=== PATIENT | female | born 1935 | race Caucasian/White ===

== ENCOUNTER 2020-01-27 10:24 | Emergency (ER) | payer BC, SELFPAY ==
--- NOTE | ~2020-01-27 | XR_ITS ---
XR thoracolumbar DATE: 01/27/2020 11:30 INDICATION: Mid back pain. No injury. TECHNIQUE: AP and lateral views of the thoracolumbar spine, not completely including the thoracic or the lumbar spine. COMPARISON: None FINDINGS: There is moderate osteopenia. There is mild extra scoliosis of the thoracic spine and mild levoscoliosis of the lumbar spine. There is degenerative spurring of the thoracic spine. There is degenerative disc disease of the lumba r spine. No fracture or bone destruction is evident. The pedicles are intact. The abdominal aorta is calcified; no apparent aneurysm of the calcified mid and lower portions. Surgical clips, right upper quadrant, likely due to cholecystectomy IMPRESSION: Degenerative changes of the thoracic and lumbar spine Scoliosis Status post cholecystectomy. Reviewed, dictated and finalized at location A.
[2020-01-27 10:29] VITALS: BP 179/75; PULSE 69; RESP 17; TEMP 36.8; O2SAT 100
[2020-01-27] MEDS: SODIUM CHLORIDE 0.9% IV 1,000 ML 999 ML IV CONT (11:45)
--- NOTE | 2020-01-27 13:14 | ED.BACK ---
HPI - Back Pain/Injury General Chief Complaint: Back Pain/Injury Stated Complaint: back pain Time Seen by Provider: 01/27/20 11:03 History of Present Illness HPI Narrative: Patient is an 84-year-old female who presents ER after injuring her back 3 days ago. She was playing with her dog when she felt a twinge in her back beneath her shoulder blades. It sharp and has increased in pain over the last few days she has waves of pain that occur when she moves. No direct trauma to the back. No numbness or burning related to this. No urinary/fecal incontinence. Has been placing a hot water pad to her back and has used some spray on IcyHot. Related Data Allergies Allergy/AdvReac Type Severity Reaction Status Date / Time No Known Allergies Allergy Verified 01/27/20 10:33 Review of Systems Constitutional: Constitutional: Denies chills, Denies fever(s) and Denies weakness Cardiovascular: Cardiovascular: Denies chest pain and Denies radiating jaw, neck or arm pain Respiratory: Respiratory: Denies cough, Denies dyspnea and Denies wheezing Musculoskeletal: Musculoskeletal: Reports back pain and Reports muscle cramps Neurologic: Denies focal weakness and Denies numbness PMFSH Past Medical History Medical History (Updated 01/27/20 @ 13:23 by Duran Henriquez MD) Chronic kidney disease Scoliosis Surgical History Surgical History (Updated 01/27/20 @ 13:21 by Duran Henriquez MD) H/O: hysterectomy History of appendectomy History of cholecystectomy Social History Social History (Updated 01/27/20 @ 13:16 by Duran Henriquez MD) Smoking status: Never smoker Gender identity (if verbalized by the patient): Female Exam Narrative: Exam Narrative: GENERAL: Uncomfortable-appearing, well-nourished, and in mild distress. HEAD: Normocephalic, atraumatic. CHEST: Clear to auscultation. No respiratory distress. HEART: Regular rate and rhythm. Normal peripheral pulses. Back: No midline tenderness of the thoracic lumbar spine but very tender in the paraspinal musculature just inferior to the shoulder blades bilaterally without any abrasions or contusions. EXTREMITIES: Normal range of motion. No edema. SKIN: Warm, dry, no rash. NEURO: Alert and oriented x3. Course Course Emergency Course: Patient had mild to moderate relief with the Valium and IV Tylenol but pain is started to come back. We will give a small dose of fentanyl prior to discharge which patient would like to go home. Will give patient Valium and Flexeril for home. She has been instructed to take Valium in the morning in the evening and take Flexeril in the middle of the day so she does not become sedated. Vital Signs Vital signs: Vital Signs Temperature 98.3 F 01/27/20 10:29 Pulse Rate 69 01/27/20 10:29 Respiratory Rate 17 01/27/20 10:29 Blood Pressure 179/75 H 01/27/20 10:29 Pulse Oximetry 100 01/27/20 10:29 Temperature 98.3 F 01/27/20 10:29 Pulse Rate 69 01/27/20 10:29 Respiratory Rate 17 01/27/20 10:29 Blood Pressure 179/75 H 01/27/20 10:29 Pulse Oximetry 100 01/27/20 10:29 MDM - Back Pain/Injury Imaging Data Radiologist's impression: ITS Impressions Thoracolumbar Spine 01/27/20 11:34 IMPRESSION: Degenerative changes of the thoracic and lumbar spine Scoliosis Status post cholecystectomy. Discharge Plan Discharge Clinical Impression: Muscle spasm Patient Disposition: Home, Self-Care Condition: Stable Instructions: Muscle Spasm (ED) Additional Instructions: Return the ER if you have chest pain shortness of breath, cannot keep down food or water, you have fever over 100.4 ?F, you have additional concerns. Prescriptions: New cyclobenzaprine 10 mg tablet 10 mg PO TID PRN (Reason: muscle spasm) Qty: 10 RF: 0 diazepam [Valium] 2 mg tablet 2 mg PO BID Qty: 6 RF: 0 acetaminophen 500 mg capsule 500 mg PO QID PRN (Reason: pain) Qty: 20 RF: 0 Follow-up/Referr
== END 2020-01-27 14:18 | disposition home or self-care (01) ==
PROVIDERS: Emergency Provider Emergency Medicine; PCP Internal Medicine
DX: R25.2 Cramp and spasm (principal); N18.9 Chronic kidney disease, unspecified
CPT/HCPCS: 72080; 96365; 96375; 99284; A9270; J0131; J3360; J7030

== ENCOUNTER 2020-04-14 11:35 | Emergency (ER) | payer MEDICARE, SELFPAY ==
[2020-04-14 11:45] VITALS: BP 148/66; PULSE 65; RESP 18; TEMP 36.1; O2SAT 99
[2020-04-14] MEDS: HYDROcodone/acetaminophen (*CRX) 5-325 MG TABLET 1 TAB PO (12:51)
[2020-04-14 13:19] LABS: Basophils Percent Auto 0.6 % (0.2-1.2); Eosinophils Absolute Auto 0.1 K/mm3 (0-0.3); Eosinophils Percent Auto 0.8 % (0-4.4); Hematocrit 31.1 % (37.0-47.0); Hemoglobin 10.2 g/dL (12.0-15.0); Immature Granulocyte Absolute 0.03 K/mm3 (0.00-0.031); Immature Granulocyte Percent A 0.5 % (0-0.5); Lymphocytes Absolute Auto 1.38 K/mm3 (0.9-3.2); Lymphocytes Percent Auto 21.7 % (18.3-44.2); Mean Corpuscular HGB Conc 32.8 g/dl (32-36); Mean Corpuscular Hemoglobin 29.1 pg (26-34); Mean Corpuscular Volume 88.6 fl (80-100); Mean Platelet Volume 9.7 fl (7.4-10.4); Monocytes Absolute Auto 0.5 K/mm3 (0.1-0.6); Monocytes Percent Auto 7.5 % (2.6-8.5); Neutrophils Absolute Auto 4.4 K/mm3 (1.3-6.7); Neutrophils Percent Auto 68.9 % (45.5-73.1); Platelet Count Result 252 k/mm3 (150-375); Red Blood Count 3.51 M/mm3 (4.2-5.4); Red Cell Distribution Width 15.8 % (11.5-14.5); White Blood Count 6.4 K/mm3 (4.5-10.0)
--- NOTE | 2020-04-14 13:24 | ED.GENADULT ---
HPI - General Adult General Chief complaint: Back Pain/Injury Stated complaint: back pain Time Seen by Provider: 04/14/20 12:03 Source: patient and old records reviewed Mode of arrival: ambulatory Limitations: no limitations History of Present Illness HPI narrative: Patient is a 84-year-old female who presents to emergency department for evaluation of mid back spasms that began last night patient notes history of similar occurrence for which she takes Tylenol and muscle relaxer for has had imaging in the past denies any recent illness injury or trauma and is otherwise resting comfortably in the room in no distress. Related Data Home Medications Medication Instructions Recorded Confirmed losartan 04/14/20 04/14/20 rosuvastatin mg 04/14/20 Allergies Allergy/AdvReac Type Severity Reaction Status Date / Time No Known Allergies Allergy Verified 04/14/20 12:03 Review of Systems Review of Systems: All systems reviewed & are unremarkable except as noted in HPI and below PMFSH Past Medical History Medical History Chronic kidney disease Scoliosis Surgical History Surgical History H/O: hysterectomy History of appendectomy History of cholecystectomy Social History Social History Smoking status: Never smoker Gender identity (if verbalized by the patient): Female Exam Narrative: Exam Narrative: GENERAL: Well-appearing, well-nourished, and in no acute distress. HEAD: Normocephalic, atraumatic. EYES: PERRLA and EOMI. ENT: Nares clear, no rhinorrhea or epistaxis. Mucous membranes moist. CHEST: Clear to auscultation. No respiratory distress. No wheezes rales or rhonchi HEART: Regular rate and rhythm. No murmur heard. EXTREMITIES: Normal range of motion. No edema. No deformity or tenderness of the thoracic or lumbar spine SKIN: Warm, dry, no rash. NEURO: No focal deficits. Alert and oriented x3. Cranial nerves II through XII grossly intact. Normal speech and gait PSYCH: Normal mood and affect. Course Course Emergency Course: Patient in the room in no distress aware of case findings treatment plan diagnosis agreeing to follow-up as direct Vital Signs Vital signs: Vital Signs Temperature 97.0 F L 04/14/20 11:45 Pulse Rate 65 04/14/20 11:45 Respiratory Rate 18 04/14/20 11:45 Blood Pressure 148/66 H 04/14/20 11:45 Pulse Oximetry 99 04/14/20 11:45 Temperature 97.0 F L 04/14/20 11:45 Pulse Rate 65 04/14/20 11:45 Respiratory Rate 18 04/14/20 11:45 Blood Pressure 148/66 H 04/14/20 11:45 Pulse Oximetry 99 04/14/20 11:45 Medical Decision Making MDM Narrative Medical decision making narrative: Patients pain is positional in nature and localized to back without signs of cord compression or cauda equina based on neurological exam, skeletal exam and history. No fever or other significant factors to suggest osteomyelitis or spinal epidural abscess. No symptoms or signs to suggest pain is referred from abdominal or / cardiopulmonary sources. No pulsatile masses noted on exam. Patient ambulates with steady gait and is stable for outpatient management given case findings. Vital Signs Vital Signs: Vital Signs Temperature 97.0 F L 04/14/20 11:45 Pulse Rate 65 04/14/20 11:45 Respiratory Rate 18 04/14/20 11:45 Blood Pressure 148/66 H 04/14/20 11:45 Pulse Oximetry 99 04/14/20 11:45 Temperature 97.0 F L 04/14/20 11:45 Pulse Rate 65 04/14/20 11:45 Respiratory Rate 18 04/14/20 11:45 Blood Pressure 148/66 H 04/14/20 11:45 Pulse Oximetry 99 04/14/20 11:45 Lab Data Result diagrams: 04/14/20 13:09 04/14/20 13:09 Labs: Lab Results 04/14/20 04/14/20 04/14/20 Range/Units 13:09 13:09 13:09 WBC 6.4 (4.5-10.0) K/mm3 RBC 3.51 L (4.2-5.4)
[2020-04-14 13:25] LABS: Add Urine Microscopic? YES; Appearance Urine Clear (Clear); Bacteria Urine Trace /hpf; Bilirubin Urine Negative (Negative); Blood Urine Negative (Negative); Color Urine Straw (Yellow); Glucose Urine UA Negative (Negative); Ketones Urine Negative (Negative); Leukocyte Esterase Ur Trace LEU/UL (Negative); Nitrate Urine Negative (Negative); Protein Urine Negative (Negative); RBC Urine 0-2 /hpf (0-2); Specific Grav Ur 1.006 (1.001-1.035); Squamous Epithelial Cell Urine Occasional /hpf (Few); Urobilinogen Urine Negative mg/dL (<2.0); WBC Urine 0-3 /hpf
[2020-04-14 13:31] LABS: Anion Gap 7 mmol/L (8-16); Blood Urea Nitrogen 17 mg/dL (7-17); Calcium 9.4 mg/dL (8.4-10.2); Carbon Dioxide 27 mmol/L (22-30); Chloride 103 mmol/L (98-107); Estimated CRCL calculation 29 ml/min; Estimated Glomerular Filt Rate 39; Glucose 93 mg/dL (65-105); Potassium 4.1 mmol/L (3.4-5.0); Sodium 137 mmol/L (137-145)
== END 2020-04-14 14:15 | disposition home or self-care (01) ==
PROVIDERS: Emergency Medicine Emergency Medical Services; Emergency Provider Emergency Medicine; PCP Internal Medicine
DX: M54.16 Radiculopathy, lumbar region (principal); N18.9 Chronic kidney disease, unspecified
CPT/HCPCS: 36415; 80048; 81001; 85025; 99283; A9270

== ENCOUNTER 2020-05-05 15:16 | Outpatient (CLI) | payer MEDICARE, SELFPAY ==
[2020-05-05 15:47] LABS: Basophils Absolute Auto 0.1 K/mm3 (0.0-0.1); Basophils Percent Auto 0.7 % (0.2-1.2); Eosinophils Absolute Auto 0.1 K/mm3 (0-0.3); Eosinophils Percent Auto 1.8 % (0-4.4); Hematocrit 34.2 % (37.0-47.0); Hemoglobin 10.8 g/dL (12.0-15.0); Immature Granulocyte Absolute 0.03 K/mm3 (0.00-0.031); Immature Granulocyte Percent A 0.4 % (0-0.5); Immature Reticulocyte Fraction 15.1 % (3.0-15.9); Lymphocytes Absolute Auto 1.99 K/mm3 (0.9-3.2); Lymphocytes Percent Auto 27.8 % (18.3-44.2); Mean Corpuscular HGB Conc 31.6 g/dl (32-36); Mean Corpuscular Hemoglobin 28.4 pg (26-34); Mean Platelet Volume 9.9 fl (7.4-10.4); Monocytes Absolute Auto 0.5 K/mm3 (0.1-0.6); Monocytes Percent Auto 6.7 % (2.6-8.5); Neutrophils Absolute Auto 4.5 K/mm3 (1.3-6.7); Neutrophils Percent Auto 62.6 % (45.5-73.1); Platelet Count Result 283 k/mm3 (150-375); Red Cell Distribution Width 15.3 % (11.5-14.5); Reticulocyte Percent 1.68 % (0.7-4.3); Reticulocytes Absolute 0.06 B/L (32.2-175.7); White Blood Count 7.2 K/mm3 (4.5-10.0)
[2020-05-05 16:37] LABS: Iron 35 ug/dL (37-170)
[2020-05-05 16:40] LABS: Hemoglobin A1C 5.4 % (<5.7)
[2020-05-05 16:41] LABS: Alanine Aminotransferase 12 U/L (4-35); Albumin Level 4.1 g/dL (3.5-5.1); Alkaline Phosphatase 69 U/L (38-126); Anion Gap 6 mmol/L (8-16); Aspartate Amino Transferase 23 U/L (14-36); Bilirubin,Total 0.6 mg/dL (0.2-1.3); Blood Urea Nitrogen 18 mg/dL (7-17); Calcium 9.8 mg/dL (8.4-10.2); Carbon Dioxide 29 mmol/L (22-30); Chloride 102 mmol/L (98-107); Cholesterol 168 mg/dL (0-200); Estimated Glomerular Filt Rate 39; Glucose 101 mg/dL (65-105); HDL Direct 98 mg/dL; Lactate Dehydrogenase 321 U/L (313-618); Phosphorus 4.4 mg/dL (2.5-4.5); Potassium 4.1 mmol/L (3.4-5.0); Sodium 137 mmol/L (137-145); Triglycerides 78 mg/dL (<150); Uric Acid 4.9 mg/dL (2.5-7.5)
[2020-05-05 16:42] LABS: Add Urine Microscopic? YES; Appearance Urine Clear (Clear); Bacteria Urine Trace /hpf; Bilirubin Urine Negative (Negative); Blood Urine Negative (Negative); Color Urine Yellow (Yellow); Glucose Urine UA Negative (Negative); Ketones Urine Negative (Negative); Leukocyte Esterase Ur 2+ LEU/UL (Negative); Mucus Urine Rare /lpf; Nitrate Urine Negative (Negative); Protein Urine Negative (Negative); Specific Grav Ur 1.011 (1.001-1.035); Squamous Epithelial Cell Urine Many /hpf (Few); Urobilinogen Urine Negative mg/dL (<2.0); WBC Urine 21-30 /hpf
[2020-05-05 16:47] LABS: Percent Iron Saturation 9 % (20-50)
[2020-05-05 16:52] LABS: LDL Cholesterol Direct 57 mg/dL
[2020-05-05 17:09] LABS: Vitamin D 25 Hydroxy 59.1 ng/mL
[2020-05-05 17:15] LABS: Ferritin 8.33 ng/mL (11.1-264)
[2020-05-05 17:40] LABS: Erythrocyte Sedimentation Rate 28 mm/hr (0-20)
[2020-05-05 17:47] LABS: Folic Acid 17.8 ng/mL (2.76->20)
[2020-05-05 18:34] LABS: Creatinine Urine 76.4 mg/dL
[2020-05-05 19:09] LABS: MALB Creatinine Ratio < 7.9 mg/g (0-30); Microalbumin Urine Random < 6.0 mg/L (0-16.7)
== END 2020-05-05 15:17 | disposition home or self-care (01) ==
LOC: ANHLAB 15:18
PROVIDERS: PCP Internal Medicine; Visit Provider Internal Medicine Hematology & Oncology
DX: E78.5 Hyperlipidemia, unspecified (principal); N18.30 Chronic kidney disease, stage 3 unspecified; I50.9 Heart failure, unspecified; E11.65 Type 2 diabetes mellitus with hyperglycemia; E55.9 Vitamin D deficiency, unspecified; N39.0 Urinary tract infection, site not specified; Z11.4 Encounter for screening for human immunodeficiency virus [HIV]
CPT/HCPCS: 36415; 80053; 80061; 81001; 82043; 82306; 82607; 82728; 82746; 83036; 83540; 83550; 83615; 83970; 84100; 84443; 84550; 85025; 85046; 85652; 87077; 87086; 87088; 87186

== ENCOUNTER → 2021-04-28 10:39 | Outpatient (CLI) | payer MEDICARE, SELFPAY ==
--- NOTE | ~2021-04-28 | XR_ITS ---
XR thoracic spine 2V DATE: 04/28/2021 11:03 INDICATION: Thoracic spine pain TECHNIQUE: AP, lateral, swimmer views COMPARISON: None FINDINGS: There is diffuse osteopenia. There is kyphodextroscoliosis of the thoracic spine. There is degenerative spurring of the thoracic spine. No fracture or bone destruction is detected. The thoracic pedicles appear intact. No paraspinal soft tissue thickening. IMPRESSION: Diffuse osteopenia Kyphodextroscoliosis Degenerative spurring Reviewed, dictated and finalized at location B.
== END ==
PROVIDERS: PCP Internal Medicine; Visit Provider Nurse Practitioner Family
DX: M54.6 Pain in thoracic spine (principal); M85.88 Other specified disorders of bone density and structure, other site
CPT/HCPCS: 72070

== ENCOUNTER 2021-08-03 23:28 | Emergency (ER) | payer MEDICARE, SELFPAY ==
[2021-08-03 23:34] VITALS: BP 156/105; PULSE 80; RESP 18; TEMP 36.7; O2SAT 95
--- NOTE | 2021-08-04 01:15 | PC.NURSE ---
Pt's family up to the desk, states that she's taking Jesusita home now, that she's simply too tired to wait for a pneumonia screen at this time. States will follow up with her PMD or return if worse. Pt and family ambulatory out of department.
== END 2021-08-04 00:49 | disposition left against medical advice (07) ==
LOC: ANHED 08-04 01:21
PROVIDERS: PCP Internal Medicine
DX: R05.9 Cough, unspecified (principal)
CPT/HCPCS: 99199

== ENCOUNTER 2022-02-08 06:36 | Outpatient (CLI) | payer MEDICARE, SELFPAY ==
--- NOTE | ~2022-02-08 | MR_ITS ---
EXAMINATION: MR thoracic spine wo con DATE: 02/08/2022 07:48 INDICATION: EXAMINATION: MR thoracic spine wo con DATE: 02/08/2022 07:48 INDICATION: Thoracic spine pain TECHNIQUE: Magnetic resonance imaging (MRI) of the thoracic spine was performed without intravenous c ontrast. Sagittal localizer T1-weighted FSE of the cervical spine was obtained. Thoracic spine sequen vernell included sagittal T2-weighted FSE, sagittal T1-weighted FSE, sagittal T2-weighted FS FSE, and axi al T2-weighted FSE. COMPARISON: 04/28/2021 FINDINGS: Mild scoliosis. Exaggerated kyphosis Vertebral body heights are aligned. Multilevel mild de generative disc space narrowing. Diffuse mild hypointense T1 marrow signal possibly due to reconversi on. No suspicious focal marrow signal. Modic type II change at T6-7 and early change at T11-12. Verte bral body heights are intact. Normal facets. No significant central canal or neural foraminal narrowi ng. The cord is normal in signal and caliber. Conus terminates at L1. IMPRESSION: 1. Multilevel mild degenerative disc disease. 2. No severe central canal or neural foraminal narrowing. Reviewed, dictated and finalized at location K.
== END 2022-02-08 06:37 | disposition home or self-care (01) ==
PROVIDERS: PCP Internal Medicine; Visit Provider Nurse Practitioner Family
DX: M51.34 Other intervertebral disc degeneration, thoracic region (principal)
CPT/HCPCS: 72146

== ENCOUNTER 2022-02-20 10:17 | Outpatient (CLI) | payer MEDICARE, SELFPAY ==
--- NOTE | ~2022-02-20 | MR_ITS ---
EXAMINATION: MR lumbar spine wo con DATE: 02/20/2022 11:20 INDICATION: Lumbar radiculopathy. TECHNIQUE: Magnetic resonance imaging (MRI) of the lumbar spine was performed without intravenous con trast. Sequences included sagittal T2-weighted FSE, sagittal T2-weighted FS FSE, sagittal T1-weighted FSE, and axial T2-weighted FSE. COMPARISON: None. FINDINGS: There is 20 degrees levoscoliosis of lumbar spine. There is 3 mm anterolisthesis of L4 on L 5. Vertebral body heights are normal. There is mildly decreased disc height at L2-L3, moderately decr eased disc height at L4-L5, and severely decreased disc height at L5-S1 with endplate remodeling. 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 The distal spinal cord signal intensity is normal. The conus medullaris is at T12-L1. The following disc levels are specifically discussed: L1-L2: The disc does not extend beyond the endplate margin. There is moderate bilateral facet joint o steoarthritis. There is mild right neural foraminal stenosis. There is no central canal stenosis. L2-L3: The disc is bulging and has an annular fissure. There is moderate right and severe left facet joint osteoarthritis. There is moderate right and mild left neural foraminal stenosis. There is mild central canal stenosis. L3-L4: The disc is bulging. There is moderate right and severe left facet joint osteoarthritis. There is mild bilateral neural foraminal stenosis. There is mild central canal stenosis. L4-L5: The disc is bulging. There is severe bilateral facet joint osteoarthritis. There is mild bilat eral neural foraminal stenosis. There is mild central canal stenosis. L5-S1: The disc is bulging and has an annular fissure. There is severe bilateral facet joint osteoart hritis. There is mild bilateral neural foraminal stenosis. There is mild central canal stenosis. IMPRESSION: 1. Severe lumbar spondylosis. 2. Lumbar levoscoliosis. Reviewed, dictated and finalized at location A.
== END 2022-02-20 10:18 | disposition home or self-care (01) ==
PROVIDERS: PCP Internal Medicine; Visit Provider Nurse Practitioner Family
DX: M47.26 Other spondylosis with radiculopathy, lumbar region (principal)
CPT/HCPCS: 72148

== ENCOUNTER 2022-06-27 10:27 | Outpatient (CLI) | payer MEDICARE, SELFPAY ==
[2022-06-27 11:15] LABS: Basophils Percent Auto 0.7 % (0.2-1.2); Eosinophils Absolute Auto 0.2 K/mm3 (0-0.3); Eosinophils Percent Auto 2.6 % (0-4.4); Hemoglobin 12.2 g/dL (12.0-15.0); Immature Granulocyte Absolute 0.03 K/mm3 (0.00-0.031); Immature Granulocyte Percent A 0.5 % (0-0.5); Lymphocytes Absolute Auto 1.32 K/mm3 (0.9-3.2); Mean Corpuscular HGB Conc 32.1 g/dl (32-36); Mean Corpuscular Hemoglobin 31.6 pg (26-34); Mean Corpuscular Volume 98.4 fl (80-100); Monocytes Absolute Auto 0.4 K/mm3 (0.1-0.6); Monocytes Percent Auto 7.5 % (2.6-8.5); Neutrophils Absolute Auto 3.8 K/mm3 (1.3-6.7); Neutrophils Percent Auto 65.7 % (45.5-73.1); Platelet Count Result 265 k/mm3 (150-375); Red Blood Count 3.86 M/mm3 (4.2-5.4); Red Cell Distribution Width 13.3 % (11.5-14.5); White Blood Count 5.8 K/mm3 (4.5-10.0)
[2022-06-27 11:26] LABS: INR 1.1; Prothrombin Time 13.7 Seconds (11.1-14.7)
[2022-06-27 11:27] LABS: Partial Thromboplastin Time 26.7 SECONDS (22.3-36.8)
[2022-06-27 11:29] LABS: Anion Gap 3 mmol/L (8-16); Blood Urea Nitrogen 22 mg/dL (7-17); Calcium 8.9 mg/dL (8.4-10.2); Carbon Dioxide 33 mmol/L (22-30); Chloride 99 mmol/L (98-107); Estimated Glomerular Filt Rate 33; Glucose 98 mg/dL (65-110); Potassium 4.6 mmol/L (3.4-5.0); Sodium 135 mmol/L (137-145)
--- NOTE | 2022-06-27 11:30 | ECG_ITS ---
Measurements Intervals [place] Rate: 49 P: MI: 0 QRS: 5 QRSD: 88 T: 20 QT: 425 QTc: 386 Interpretive Statements ATRIAL FIBRILLATION WITH SLOW VENTRICULAR RESPONSE MINIMAL ST DEPRESSION [0.025+ mV ST DEPRESSION] ABNORMAL RHYTHM ECG NO PREVIOUS ECG AVAILABLE FOR COMPARISON Electronically Signed On 06-27-2022 15:13:41 [employer] by Aris Delgadillo M.D.
[2022-06-27 15:30] LABS: Appearance Urine Clear (Clear); Bilirubin Urine Negative (Negative); Blood Urine Negative (Negative); Color Urine Yellow (Yellow); Glucose Urine UA Negative (Negative); Ketones Urine Negative (Negative); Leukocyte Esterase Ur Trace LEU/UL (Negative); Nitrate Urine Negative (Negative); Protein Urine Negative (Negative); Specific Grav Ur 1.015 (1.001-1.035); Urobilinogen Urine 0.2 mg/dL (<2.0); pH Urine 6.5 (5.0-9.0)
[2022-06-27 15:34] LABS: Bacteria Urine Trace /hpf; RBC Urine 0-2 /hpf (0-2); Squamous Epithelial Cell Urine Occasional /hpf (Few); WBC Urine 0-3 /hpf
[2022-06-27 15:43] LABS: Add Urine Microscopic? YES
== END 2022-06-27 10:28 | disposition home or self-care (01) ==
PROVIDERS: PCP Internal Medicine
DX: Z01.818 Encounter for other preprocedural examination (principal)
CPT/HCPCS: 36415; 80048; 81001; 85025; 85610; 85730; 93005

== ENCOUNTER 2022-07-13 14:04 | Emergency (ER) | payer MEDICARE, SELFPAY ==
--- NOTE | ~2022-07-13 | XR_ITS ---
EXAM: XR abdomen/kub 1V DATE: 07/13/2022 15:59 HISTORY: constipation . COMPARISON: None available. FINDINGS: Bilateral scar/atelectasis. Cholecystectomy clips. Stimulator pack with leads projecting o ut of the [id number].. Normal bowel gas pattern. No organomegaly. Likely diverticular calcificatio n projecting over the left abdomen. Degenerative changes in the lumbar spine bilateral hips and pubic symphysis. IMPRESSION: No radiographic evidence of obstruction or ileus. Reviewed, dictated and finalized at location K. [employer]CHITECT
[2022-07-13 14:59] VITALS: BP 135/61; PULSE 76; RESP 20; TEMP 36.2; O2SAT 96
[2022-07-13 15:30] LABS: Basophils Percent Auto 0.2 % (0.2-1.2); Eosinophils Percent Auto 0.4 % (0-4.4); Hematocrit 36.6 % (37.0-47.0); Immature Granulocyte Absolute 0.06 K/mm3 (0.00-0.031); Immature Granulocyte Percent A 0.7 % (0-0.5); Lymphocytes Absolute Auto 0.86 K/mm3 (0.9-3.2); Lymphocytes Percent Auto 10.7 % (18.3-44.2); Mean Corpuscular HGB Conc 32.8 g/dl (32-36); Mean Corpuscular Hemoglobin 31.3 pg (26-34); Mean Corpuscular Volume 95.6 fl (80-100); Mean Platelet Volume 9.5 fl (7.4-10.4); Monocytes Absolute Auto 0.4 K/mm3 (0.1-0.6); Monocytes Percent Auto 4.7 % (2.6-8.5); Neutrophils Absolute Auto 6.7 K/mm3 (1.3-6.7); Neutrophils Percent Auto 83.3 % (45.5-73.1); Platelet Count Result 338 k/mm3 (150-375); Red Blood Count 3.83 M/mm3 (4.2-5.4); Red Cell Distribution Width 13.1 % (11.5-14.5); White Blood Count 8.1 K/mm3 (4.5-10.0)
[2022-07-13 15:36] LABS: Add Urine Microscopic? YES; Appearance Urine Slightly Cloudy (Clear); Bilirubin Urine Negative (Negative); Blood Urine Trace-Intact (Negative); Color Urine Light Yellow (Yellow); Glucose Urine UA Negative (Negative); Ketones Urine Negative (Negative); Leukocyte Esterase Ur 1+ LEU/UL (Negative); Nitrate Urine Negative (Negative); Protein Urine Negative (Negative); Urobilinogen Urine 0.2 mg/dL (<2.0); pH Urine 6.5 (5.0-9.0)
[2022-07-13 15:41] LABS: Alanine Aminotransferase 20 U/L (6-35); Albumin Level 3.8 g/dL (3.5-5.1); Alkaline Phosphatase 104 U/L (38-126); Anion Gap 7 mmol/L (8-16); Aspartate Amino Transferase 29 U/L (14-36); Bilirubin,Total 0.7 mg/dL (0.2-1.3); Blood Urea Nitrogen 21 mg/dL (7-17); Calcium 8.9 mg/dL (8.4-10.2); Carbon Dioxide 30 mmol/L (22-30); Chloride 98 mmol/L (98-107); Estimated CRCL calculation 28 ml/min; Estimated Glomerular Filt Rate 36; Glucose 116 mg/dL (65-110); Lipase 60 U/L (23-300); Potassium 3.9 mmol/L (3.4-5.0); Sodium 135 mmol/L (137-145)
[2022-07-13 15:52] LABS: Bacteria Urine Trace /hpf; Mucus Urine Rare /lpf; RBC Urine 0-2 /hpf (0-2); Squamous Epithelial Cell Urine Occasional /hpf (Few)
[2022-07-13 19:17] VITALS: BP 125/60; PULSE 68; RESP 20; TEMP 36.7; O2SAT 100
--- NOTE | 2022-07-13 19:51 | ED.ABDPAIN ---
HPI - Abdominal Pain General Chief Complaint: Abdominal Pain Stated Complaint: CONSTIPATION FOR PAST WEEK Time Seen by Provider: 07/13/22 19:16 History of Present Illness HPI narrative: Patient presents with constipation over the last 3 days, she has been having bowel movements but they are very small. She had been on narcotics from a surgery, though she says she has not taken them the last few days, she was prescribed stool softeners but she also has not been taking those either. Endorses some rectal pressure Related Data Home Medications Medication Instructions Recorded Confirmed losartan 25 mg tablet 04/14/20 04/14/20 rosuvastatin 10 mg tablet mg 04/14/20 Allergies Allergy/AdvReac Type Severity Reaction Status Date / Time No Known Allergies Allergy Verified 07/13/22 15:03 Review of Systems Review of Systems: CONST: No fever. HEENT: No sore throat C/V: No chest pain RESP: No cough GI: Reports constipation : No dysuria. M/S: No joint pain. SKIN: No rash. NEURO: [No headache or focal numbness or weakness] PSYCH: [No depression] [facility] Past Medical History Medical History Chronic kidney disease Scoliosis Surgical History Surgical History H/O: hysterectomy History of appendectomy History of cholecystectomy Social History Social History Smoking status: Never smoker Gender identity (if verbalized by the patient): Female Exam Narrative: EXAMINATION OF ORGAN SYSTEMS/BODY AREAS: Constitutional: Vital signs per nursing GENERAL:[No acute distress, non-toxic appearing.] HEAD: Normal with no signs of head trauma. EYES: EOMI, conjunctiva normal ENT: Hearing grossly intact LUNGS: Nonlabored breathing. HEART: [Regular rate and rhythm] ABD: [Soft], [nontender to palpation] EXT: Normal range of motion SKIN: [No rashes or lesions.] NEURO: [Alert and oriented x 3. No gross focal sensory or strength deficits.] PSYCH: Normal affect Course Vital Signs Vital signs: Vital Signs Temperature 97.1 F L 07/13/22 14:59 Pulse Rate 76 07/13/22 14:59 Respiratory Rate 20 07/13/22 14:59 Blood Pressure 135/61 12/28/22 14:59 Pulse Oximetry 96 07/13/22 14:59 Oxygen Delivery Room Air 07/13/22 14:59 Temperature 98.1 F 07/13/22 19:17 Pulse Rate 68 07/13/22 19:17 Respiratory Rate 20 07/13/22 19:17 Blood Pressure 125/60 07/13/22 19:17 Pulse Oximetry 100 07/13/22 19:17 Oxygen Delivery Room Air 07/13/22 14:59 MDM - Abdominal Pain MDM Narrative Medical decision making narrative: 86-year-old female presenting with constipation, vital signs stable, abdomen is soft nontender, I suspect likely constipation as a result of either her recent narcotic use or not taking her stool softeners, I have low concern for SBO or other emergent condition including perforation given her benign exam and normal labs. Abdominal x-ray is unremarkable. We will trial some Relistor, and I will put her back on stool softeners. She is to follow-up with her primary care doctor for constipation and can return for any further issues. Lab Data 07/13/22 15:14 07/13/22 15:14 Labs: Lab Results 07/13/22 07/13/22 07/13/22 Range/Units 15:13 15:14 15:14 WBC 8.1 (4.5-10.0) K/mm3 RBC 3.83 L (4.2-5.4) M/mm3 Hgb 12.0 (12.0-15.0) g/dL Hct 36.6 L (37.0-47.0) % MCV 95.6 (80-100) fl MCH 31.3 (26-34) pg MCHC 32.8 (32-36) g/dl RDW 13.1 (11.5-14.5) % Plt Count 338 (150-375) k/mm3 MPV 9.5 (7.4-10.4) fl Immature Gran % (Auto) 0.7 H (0-0.5) % Neut % (Auto) 83.3 H (45.5-73.1) % Lymph % (Auto) 10.7 L (18.3-44.2) % Gaines % (Auto) 4.7 (2.6-8.5) % Eos % (Auto) 0.4 (0-4.4) % Baso % (Auto) 0.2 (0.2-1.2) % Lymph # (Auto) 0.86 L (0.9-3.2) K/mm3 Gaines # (Auto)
[2022-07-13] MEDS: METHYLNALTREXONE 12 MG/0.6 ML VIAL SUB-Q (20:03)
== END 2022-07-13 20:26 | disposition home or self-care (01) ==
LOC: ANHED 20:14
PROVIDERS: Emergency Medicine; Emergency Provider Emergency Medicine; PCP Internal Medicine
DX: K59.00 Constipation, unspecified (principal); N18.9 Chronic kidney disease, unspecified; Z90.710 Acquired absence of both cervix and uterus
CPT/HCPCS: 36415; 74018; 80053; 81001; 83690; 85025; 96372; 99283; J2212

== ENCOUNTER 2023-04-21 10:11 | Outpatient (CLI) | payer MEDICARE, SELFPAY ==
[2023-04-21 10:47] LABS: Basophils Absolute Auto 0.1 K/mm3 (0.0-0.1); Basophils Percent Auto 1.2 % (0.2-1.2); Eosinophils Absolute Auto 0.2 K/mm3 (0-0.3); Eosinophils Percent Auto 2.7 % (0-4.4); Hematocrit 23.2 % (37.0-47.0); Immature Granulocyte Absolute 0.04 K/mm3 (0.00-0.031); Immature Granulocyte Percent A 0.6 % (0-0.5); Lymphocytes Absolute Auto 1.26 K/mm3 (0.9-3.2); Mean Corpuscular HGB Conc 29.3 g/dl (32-36); Mean Corpuscular Hemoglobin 22.7 pg (26-34); Mean Corpuscular Volume 77.3 fl (80-100); Mean Platelet Volume 9.9 fl (7.4-10.4); Monocytes Absolute Auto 0.5 K/mm3 (0.1-0.6); Monocytes Percent Auto 7.7 % (2.6-8.5); Neutrophils Absolute Auto 4.6 K/mm3 (1.3-6.7); Neutrophils Percent Auto 68.8 % (45.5-73.1); Platelet Count Result 354 k/mm3 (150-375); Red Cell Distribution Width 18.1 % (11.5-14.5); White Blood Count 6.6 K/mm3 (4.5-10.0)
[2023-04-21 10:49] LABS: Hemoglobin 6.8 g/dL (12.0-15.0)
[2023-04-21 10:52] LABS: Anisocytosis 1+ (NORMAL); Crenated RBC 1+ (NORMAL); Hypochromasia 2+ (NORMAL); Ovalocytes 1+ (NORMAL); Platelet Estimate Adequate (Adequate); Poikilocytosis 2+ (NORMAL); Schistocytes None Seen (NORMAL)
[2023-04-21 16:21] LABS: Iron 21 ug/dL (37-170)
[2023-04-21 16:24] LABS: Alanine Aminotransferase 14 U/L (6-35); Albumin Level 3.5 g/dL (3.5-5.1); Alkaline Phosphatase 121 U/L (38-126); Anion Gap 5 mmol/L (8-16); Aspartate Amino Transferase 21 U/L (14-36); Bilirubin,Total 0.5 mg/dL (0.2-1.3); Blood Urea Nitrogen 20 mg/dL (7-17); Calcium 9.3 mg/dL (8.4-10.2); Carbon Dioxide 25 mmol/L (22-30); Chloride 103 mmol/L (98-107); Estimated Glomerular Filt Rate 30; Glucose 93 mg/dL (65-110); Lactate Dehydrogenase 142 U/L (120-246); Potassium 4.2 mmol/L (3.4-5.0); Sodium 133 mmol/L (137-145)
[2023-04-21 16:31] LABS: Percent Iron Saturation 5 % (20-50)
[2023-04-21 17:31] LABS: Folic Acid 12.6 ng/mL (2.76->20)
[2023-04-24 23:08] LABS: Methylmalonic Acid 1040 nmol/L (87-318)
[2023-04-25 00:17] LABS: Kappa\\Lambda Light Chains 1.49 (0.26-1.65); Lambda Light Chain 29.2 mg/L (5.7-26.3)
== END 2023-04-21 10:12 | disposition home or self-care (01) ==
PROVIDERS: PCP Internal Medicine; Visit Provider Internal Medicine Hematology & Oncology
DX: D64.9 Anemia, unspecified (principal)
CPT/HCPCS: 36415; 80053; 82607; 82728; 82746; 83540; 83550; 83615; 83883; 83921; 85025